=== PATIENT | female | born 1955 | race Caucasian/White ===

== ENCOUNTER → 2018-02-03 08:57 | Day surgery (SDC) | payer BC ==
[~2018-02-03 08:57] MED LIST: Buffered Lidocaine 0.9% SYRIN* 5 ML/SYR SYRINGE INTRADERM ONE; Famotidine IV* 10 MG/ML 2 ML (20 mg) IV ONE; Famotidine IV* 10 MG/ML 2 ML (20 mg) ONE; Ketorolac INJ* 30 MG/ML 1 ML VIAL ONE; Lidocaine 2% PF * 5 ML VIAL ONE; Metoclopramide IV* 5 MG/ML 2 ML VIAL IV SLOW PU ONE; Metoclopramide IV* 5 MG/ML 2 ML VIAL ONE; Naloxone* 0.4 MG/ML 1 ML VIAL IV PRN; Ondansetron INJ* 2 MG/ML VIAL ONE; Propofol* 10 MG/ML 20 ML BTL IV PUSH ONE; fentaNYL* 50 MCG/ML 2 ML VIAL (100 MCG VIAL) IV PRN; fentaNYL* 50 MCG/ML 2 ML VIAL (100 MCG VIAL) ONE
[2018-02-03 12:30] VITALS: BP 130/77
--- NOTE | 2018-02-04 00:37 | OP ---
DATE OF OPERATION: 02/03/18 - [facility] DATE OF : 53 SURGEON: Eugenio Hauser MD PRE-OP DIAGNOSES: Postmenopausal bleeding and submucosal fibroids. POST-OP DIAGNOSES: Postmenopausal bleeding and submucosal fibroids. OPERATIVE PROCEDURE: D and C hysteroscopy, MyoSure resection of fibroids. COMPLICATIONS: None. ESTIMATED BLOOD LOSS: Minimal. SALINE DEFICIT: 720 cc, though it is felt not quite accurate. FINDINGS: On exam under anesthesia, the uterus was retroverted. There were no adnexal masses palpable. Cervix and vulva appeared normal. On hysteroscopy, 2 small submucous myomas were found, 1 posteriorly, 1 on the anterior right. There was a polyp over the fundus and there was an intramural fibroid that protruded into the uterine cavity approximately 10% to 15%. DESCRIPTION OF PROCEDURE: The patient identified, procedure identified as D and C hysteroscopy with resection of the submucous fibroid. The patient's abdomen was prepped and draped in the usual fashion in the dorsal lithotomy position under general anesthesia. Two single-tooth tenaculums were placed in the anterior lip of the cervix. The cervix was easily dilated up to a #30 Johnson dilator. The hysteroscope was inserted. The above findings were noted. The MyoSure Reach was used to resect first the smaller fibroids and the polyp over the fundus and then the more intramural fibroid was shaved down to the level flush with the rest of the uterine cavity. Good hemostasis was achieved using 3 -0 Polysorb in a simple fashion through the tenaculum site that was bleeding. All sponge, instrument counts were correct and the patient returned to recovery room in stable condition. [id number]/[id number] #: [id number] [facility]
== END | disposition home or self-care (01) ==
LOC: OR 08:57
PROVIDERS: ATTEND Obstetrics & Gynecology
DX: N95.0 Postmenopausal bleeding (principal); N84.0 Polyp of corpus uteri; D25.0 Submucous leiomyoma of uterus; J44.9 Chronic obstructive pulmonary disease, unspecified; M19.90 Unspecified osteoarthritis, unspecified site; I10 Essential (primary) hypertension
CPT/HCPCS: 88305; J1885; J2405; J2704; J2765; J3010